=== PATIENT | female | born 1970 | race African-American/Black ===

== ENCOUNTER 2020-03-30 11:13 | Emergency (ER) | payer MEDICARE, OTHER ==
[~2020-03-30] VITALS: Ht 160 cm; Wt 100.7 kg
[2020-03-30 12:41] VITALS: BP 156/84
[2020-03-30] MEDS ORDERED: KETOROLAC TROMETH 60MG/2ML VIAL IM ONE (12:45)
== END 2020-03-30 13:08 | disposition home or self-care (01) ==
LOC: ER 11:13
DX: M54.16 Radiculopathy, lumbar region (principal); G89.29 Other chronic pain; Z88.5 Allergy status to narcotic agent
CPT/HCPCS: 96372; 99283; J1885

== ENCOUNTER 2021-10-20 08:00 | Emergency (ER) | payer OTHER ==
[~2021-10-20] VITALS: Ht 160 cm; Wt 97.1 kg
[2021-10-20 09:02] VITALS: BP 133/67
[2021-10-20] MEDS ORDERED: AMOX-277 PO (09:02)
[2021-10-20] MEDS ORDERED: BENZ100C19 PO (09:02)
[2021-10-20] MEDS ORDERED: ACET-1158 PO (09:02)
== END 2021-10-20 10:20 | disposition home or self-care (01) ==
LOC: ER 08:00
DX: J06.9 Acute upper respiratory infection, unspecified (principal); H92.03 Otalgia, bilateral; Z20.822 Contact with and (suspected) exposure to COVID-19; Z88.6 Allergy status to analgesic agent
CPT/HCPCS: 36415; 71046

== ENCOUNTER 2022-03-16 03:25 | Emergency (ER) | payer OTHER ==
[~2022-03-16] VITALS: Ht 160 cm; Wt 99.0 kg
[~2022-03-16 03:25] MED LIST: ACET-1158 PO; AMOX-277 PO; BENZ100C19 PO
[2022-03-16 07:30] VITALS: BP 130/71
[2022-03-16] MEDS ORDERED: DexAMETHasone SOD PHOS 10MG/1ML VIAL INJ PO ONE (10:15)
[2022-03-16] MEDS ORDERED: ACETAMINOPHEN 650 mg PER 20.3 mL UD PO ONE (10:15)
[2022-03-16] MEDS ORDERED: IBUP800T26 PO (10:46)
[2022-03-16] MEDS ORDERED: PROM1SOL4 PO (10:46)
[2022-03-16] MEDS ORDERED: OSEL75CA5 PO (10:46)
[2022-03-16] MEDS ORDERED: MONT-8 PO (10:46)
== END 2022-03-16 11:05 | disposition home or self-care (01) ==
LOC: ER 03:25
DX: J06.9 Acute upper respiratory infection, unspecified (principal); Z79.899 Other long term (current) drug therapy; Z79.2 Long term (current) use of antibiotics; Z88.5 Allergy status to narcotic agent; Z20.822 Contact with and (suspected) exposure to COVID-19
CPT/HCPCS: 36415; 87426; 87804; 99283; J1100

== ENCOUNTER 2022-08-15 09:46 | Inpatient (IN) | payer OTHER, MEDICAID ==
[~2022-08-15] VITALS: Ht 160 cm; Wt 98.1 kg
[~2022-08-15 09:46] MED LIST changes: +IBUP800T26 PO; +MONT-8 PO; +OSEL75CA5 PO; +PROM1SOL4 PO
[2022-08-15 10:47] LABS: Basophils # (auto) 0 10 ^3/uL (0-0.2); Basophils % (auto) 0.6 % (0.0-2.0); Eosinophils # (auto) 0.1 10 ^3/uL (0-0.8); Eosinophils % (auto) 1.7 % (0.0-7.0); Hematocrit 38.9 % (36.0-46.0); Hemoglobin 12.8 g/dL (12.2-16.2); Lymphocytes # (auto) 2.3 10 ^3/uL (0.4-5.4); Lymphocytes % (auto) 36.8 % (10.0-50.0); Mean Corpuscular Hemoglobin 28.3 pg (28.0-32.0); Mean Corpuscular Volume 85.8 fL (80.0-100.0); Monocytes # (auto) 0.4 10 ^3/uL (0-1.3); Monocytes % (auto) 5.9 % (0.0-12.0); Neutrophils # (auto) 3.4 10 ^3/uL (1.6-8.6); Nucleated Red Blood Cells % 0.2 %; Red Blood Cells 4.54 10^6/uL (4.0-5.20); Red Cell Distribution Width 14.1 % (11.8-14.3); White Blood Cell 6.2 10^3/uL (4.4-10.8)
[2022-08-15 11:06] LABS: Albumin 3.5 g/dL (3.4-5.0); Calcium 9.1 mg/dL (8.5-10.1); Magnesium 2.3 mg/dL (1.6-2.6); Potassium 3.9 mmol/L (3.5-5.1)
[2022-08-15 11:09] LABS: BUN/Creatinine Ratio 15.5; Bilirubin, Total 0.3 mg/dL (0.2-1.0); Total Protein 7.1 g/dL (6.4-8.2)
[2022-08-15] MEDS ORDERED: NITROGLYCERIN 0.4 MG SL TAB SL PRN (13:30)
[2022-08-15] MEDS ORDERED: ONDANSETRON HCL 4 MG/2 ML VIAL IV PRN (13:30)
[2022-08-15] MEDS ORDERED: ENOXAPARIN SOD 30 MG/0.3 ML SYRINGE SC ONE (13:30)
[2022-08-15] MEDS ORDERED: MORPHINE SULFATE 4 MG/ML SYR/VIAL IV PRN (13:30)
[2022-08-15 14:11] LABS: INR 0.97 (0.9-1.15)
[2022-08-15] MEDS: SODIUM CHLORIDE 0.9% 1,000 ML IV SCH (15:01)
[2022-08-15] MEDS ORDERED: hydrALAZINE HCL 20 MG/ML VL IV PRN (17:45)
[2022-08-15] MEDS ORDERED: ATORVASTATIN 20 MG TAB PO SCH (22:00)
[2022-08-16] MEDS: SODIUM CHLORIDE 0.9% 1,000 ML IV SCH ×2 (00:35→09:30)
[2022-08-16] MEDS: ACETAMINOPHEN 325 MG TAB PO PRN ×2 (04:44→09:48)
[2022-08-16 05:49] LABS: Basophils # (auto) 0 10 ^3/uL (0-0.2); Basophils % (auto) 0.3 % (0.0-2.0); Eosinophils # (auto) 0.1 10 ^3/uL (0-0.8); Eosinophils % (auto) 1.4 % (0.0-7.0); Hematocrit 38.9 % (36.0-46.0); Hemoglobin 12.7 g/dL (12.2-16.2); Lymphocytes % (auto) 37.6 % (10.0-50.0); Mean Corpuscular Hgb Conc. 32.5 g/dL (32.0-36.0); Monocytes # (auto) 0.5 10 ^3/uL (0-1.3); Monocytes % (auto) 5.7 % (0.0-12.0); Neutrophils # (auto) 4.3 10 ^3/uL (1.6-8.6); Nucleated Red Blood Cells % 0.2 %; Red Blood Cells 4.52 10^6/uL (4.0-5.20); Red Cell Distribution Width 14.1 % (11.8-14.3); White Blood Cell 7.9 10^3/uL (4.4-10.8)
[2022-08-16 06:17] LABS: Albumin 3.4 g/dL (3.4-5.0); Potassium 3.7 mmol/L (3.5-5.1)
[2022-08-16 06:23] LABS: BUN/Creatinine Ratio 17.2; Bilirubin, Total 0.5 mg/dL (0.2-1.0); Total Protein 6.8 g/dL (6.4-8.2)
[2022-08-16] MEDS ORDERED: ASPirin 81 mg TAB PO SCH (10:00)
[2022-08-16] MEDS ORDERED: DOCUSATE SOD 100 MG CAP PO SCH (10:00)
[2022-08-16] MEDS ORDERED: LISINOPRIL 10 MG TAB PO SCH (10:00)
[2022-08-16 10:30] VITALS: BP 155/79
== END 2022-08-16 11:47 | disposition left against medical advice (07) | DRG 305 ==
LOC: ER 09:46 → TELE 13:36
PROVIDERS: ADMIT Nurse Practitioner Family; ATTEND Nurse Practitioner Family
DX: I16.9 Hypertensive crisis, unspecified (principal); R00.1 Bradycardia, unspecified; E78.5 Hyperlipidemia, unspecified; Z20.822 Contact with and (suspected) exposure to COVID-19; Z53.29 Procedure and treatment not carried out because of patient's decision for other reasons; Z90.710 Acquired absence of both cervix and uterus; Z88.5 Allergy status to narcotic agent
CPT/HCPCS: 36415; 70450; 71045; 80053; 80061; 83735; 83880; 84484; 85025; 85610; 87426; 93005; 96372; G0378